=== PATIENT | female | born 1960 | race Caucasian/White ===

== ENCOUNTER → 2024-02-20 08:35 | Outpatient (BNVA) | payer MEDICARE, SELFPAY | PROVIDERS: PCP Nurse Practitioner Family; Visit Provider Specialist | DX: R20.0 Anesthesia of skin (principal); R20.2 Paresthesia of skin; R29.90 Unspecified symptoms and signs involving the nervous system; G25.0 Essential tremor; M50.90 Cervical disc disorder, unspecified, unspecified cervical region; G37.9 Demyelinating disease of central nervous system, unspecified | CPT/HCPCS: 99204; 99205 ==

== ENCOUNTER → 2024-04-15 13:43 | Outpatient (BNVA) | payer MEDICARE, SELFPAY | PROVIDERS: PCP Nurse Practitioner Family; Visit Provider Specialist | DX: R20.0 Anesthesia of skin (principal); R20.2 Paresthesia of skin; M50.90 Cervical disc disorder, unspecified, unspecified cervical region | CPT/HCPCS: 95910 ==